=== PATIENT | male | born 1930 | race Caucasian/White ===

== ENCOUNTER 2018-06-13 06:00 | Day surgery (SDC) | payer OTHER | END 2018-06-13 11:20 | disposition home or self-care (01) | LOC: AMB-ENDOS 06:00 → CIR.AMB 15:15 | DX: D12.4 Benign neoplasm of descending colon (principal); D12.5 Benign neoplasm of sigmoid colon; K57.30 Diverticulosis of large intestine without perforation or abscess without bleeding ==